=== PATIENT | male | born 1995 | race African-American/Black ===

== ENCOUNTER 2021-07-29 08:41 | Emergency (ER) | payer OTHER ==
[~2021-07-29] VITALS: Ht 177.8 cm; Wt 81.7 kg
[2021-07-29 08:42] VITALS: BP 128/59
== END 2021-07-29 23:27 | disposition home or self-care (01) ==
LOC: ER 08:41
DX: S61.411D Laceration without foreign body of right hand, subsequent encounter (principal); J45.909 Unspecified asthma, uncomplicated; F12.90 Cannabis use, unspecified, uncomplicated; X58.XXXD Exposure to other specified factors, subsequent encounter